=== PATIENT | male | born 1990 | race Caucasian/White ===

== ENCOUNTER 2017-02-14 15:20 | Emergency (ER) | payer OTHER ==
[~2017-02-14] VITALS: Ht 182.9 cm; Wt 91.4 kg
[2017-02-14 17:30] LABS: HEMATOCRIT 44.3 % (38.0-50.0); MCH 28.7 PG (29.0-34.0); MCHC 33.6 G/DL (30.0-36.0); MCV 85.4 FL (86-99); MEAN PLAT.VOLUME 10.8 uM^3 (9.0-12.4); PLATELET COUNT 220 K/uL (156-360); RBC DIS.WIDTH-CV 12.2 % (11.8-14.6); RBC DIS.WIDTH-SD 37.8 % (39-53); RED BLOOD COUNT 5.19 M/uL (4.00-5.50); WHITE BLOOD COUNT 11.1 K/uL (4.1-10.2)
[2017-02-14 17:38] LABS: CHLORIDE 104 mEq/L (99-109); POTASSIUM 4.1 mEq/L (3.7-5.4); SODIUM 141 mEq/L (136-147)
[2017-02-14 17:40] LABS: GLUCOSE 96 mg/dL (70-99)
[2017-02-14 17:41] LABS: ANION GAP 10 MEQ/L (2-14)
[2017-02-14 17:44] LABS: GFR ESTIMATE (CALCULATED) > 59 mL/min/
[2017-02-14 17:45] LABS: UREA NITROGEN (BUN) 11 mg/dL (9-23)
[2017-02-14 20:05] VITALS: BP 130/93
== END 2017-02-14 20:06 | disposition home or self-care (01) ==
LOC: EME 15:20
PROVIDERS: Emergency Medicine
DX: G43.109 Migraine with aura, not intractable, without status migrainosus (principal)
CPT/HCPCS: 70450; 80048; 85027; 99281; 99285